=== PATIENT | female | born 1950 | race Caucasian/White ===

== ENCOUNTER 2021-05-10 17:25 | Emergency (ER) | payer MEDICARE, OTHER ==
[2021-05-10 19:47] LABS: HEMOGLOBIN 13.5 gm/dl (12.3-15.3); RED BLOOD COUNT 4.52 M/UL (4.00-5.10); WHITE BLOOD COUNT 4.2 K/UL (4.5-11.0)
[2021-05-10 20:18] LABS: BUN/CREATININE RATIO 11 (0-10)
== END 2021-05-10 22:45 | disposition home or self-care (01) ==
LOC: ER1 17:25
PROVIDERS: Emergency Medicine
DX: H53.2 Diplopia (principal)
CPT/HCPCS: 70450; 71045; 80053; 82550; 82553; 83874; 84484; 85025; 93005; 99284

== ENCOUNTER → 2022-05-23 | Outpatient (CLI) | payer MEDICARE, OTHER | LOC: ECHO 09:45 | DX: R06.00 Dyspnea, unspecified (principal); R06.02 Shortness of breath | CPT/HCPCS: ECHO; 71046; 93306 ==